=== PATIENT | female | born 1965 | race Caucasian/White ===

== ENCOUNTER 2017-01-19 15:06 | Emergency (ER) | payer OTHER ==
[~2017-01-19] VITALS: Ht 162.6 cm; Wt 90.7 kg
[~2017-01-19 15:06] MED LIST: CALCITROL; EFFEXOR PO; LEVAQUIN PO; LEVOTHROID100 MC1 PO; MOBIC PO; PENICILLIN PO; PREDNISONE PO; TESSALON PERLE100 M1 PO; VOLTAREN75 MG PO; ZOFRAN ODT4 MG PO
== END 2017-01-19 16:38 | disposition home or self-care (01) ==
LOC: SED 15:06
DX: J32.9 Chronic sinusitis, unspecified (principal); Z85.3 Personal history of malignant neoplasm of breast; Z88.2 Allergy status to sulfonamides; Z88.8 Allergy status to other drugs, medicaments and biological substances; Z79.899 Other long term (current) drug therapy
CPT/HCPCS: 96372; 99283; J1885